=== PATIENT | female | born 1975 | race Caucasian/White ===

== ENCOUNTER 2017-12-21 18:55 | Emergency (ER) | payer OTHER ==
--- NOTE | 2017-12-21 19:36 | RADIOLOGY REPORT (SQ) ---
EXAM DESCRIPTION: KNEE RIGHT 2 VIEWS COMPLETED DATE/TIME: 12/21/2017 7:25 pm REASON FOR STUDY: deformity COMPARISON: None. NUMBER OF VIEWS: Two views. TECHNIQUE: AP and lateral radiographic images acquired of the right knee. LIMITATIONS: None. FINDINGS: MINERALIZATION: Normal. BONES: Patella Francisca. No acute fracture or dislocation. No worrisome bone lesions. JOINT: No effusion. SOFT TISSUES: Focal soft tissue swelling overlies the patellar tendon. OTHER: No other significant finding. IMPRESSION: Patella Francisca in the setting of anterior soft tissue swelling is concerning for acute inj ury of the patellar tendon. TECHNICAL DOCUMENTATION: JOB ID: [id number]- All Rights Reserved Reading location - IP/workstation name: [email or web address]
[2017-12-21] MEDS ORDERED: FENTANYL CITRATE INJ/PF 100 MCG/2 ML AMPUL IV ONE ×3 (19:49→21:50)
--- NOTE | 2017-12-21 19:49 | ER Document Report ---
ED Extremity Problem, Lower - General Chief Complaint: Knee Injury Stated Complaint: KNEE INJURY Time Seen by Provider: 12/21/17 19:34 Notes: 42-year-old female patient to the emergency department chief complaint of right knee pain. Patient was at a roller rink and fell down. States that she has had multiple dislocations of her patella but feels like her whole knee got dislocated this time. Has pain all over the knee. Unable to bear weight. Having major spasms in her knee and muscles at this time. Has had surgery on both knees in the past. Denies any other injuries TRAVEL OUTSIDE OF THE [place] IN LAST 30 DAYS: No - HPI Patient complains to provider of: Pain, Swelling Location: Knee Occurred: Just prior to arrival Onset/Duration: Sudden Quality of pain: Throbbing Severity: Severe Pain Level: 5 - Related Data Allergies/Adverse Reactions: No Known Allergies Allergy (Unverified 12/21/17 18:57) Past Medical History - General Information source: Patient - Social History Smoking Status: Never Smoker Cigarette use (# per day): No Frequency of alcohol use: Social Drug Abuse: None Lives with: Spouse/Significant other Family History: Reviewed & Not Pertinent Review of Systems - Review of Systems Notes: Constitutional: denies: Chills, Diaphoresis, Fever, Malaise, Weakness EENT: denies: Eye discharge, Blurred vision, Tearing, Double vision, Nose congestion, Nose discharge, Throat swelling, Mouth pain Cardiovascular: denies: Palpitations, Heart racing, Orthopnea, Dyspnea, Chest pain Respiratory: denies: Cough, Hurts to breathe, Wheezing, Shortness of breath Gastrointestinal: denies: Abdominal pain, Diarrhea, Nausea, Vomiting, Black stools, bright red blood in stool Genitourinary: denies: Burning, Dysuria, Discharge, Frequency, Flank pain, Hematuria Musculoskeletal: Your pain in the right knee, possible right knee with Dislocation, questionable knee dislocation Hematologic/Lymphatic: denies: Anemia, Easy bleeding, Easy bruising, Blood clots Neurological/Psychological: denies: Confusion, Dementia, Depression, Loss of consciousness Skin: No lesions, no masses, no skin breakdown, no abscesses Physical Exam - Vital signs Vitals: Pulse Resp BP Pulse Ox 65 17 99/45 L 100 12/21/17 21:13 12/21/17 21:13 12/21/17 21:13 12/21/17 21:13 Interpretation: Normal - General General appearance: Appears well, Alert - HEENT Head: Normocephalic, Atraumatic Eyes: Normal Pupils: PERRL - Respiratory Respiratory status: No respiratory distress Chest status: Nontender Breath sounds: Normal Chest palpation: Normal - Cardiovascular Rhythm: Regular Heart sounds: Normal auscultation Murmur: No - Abdominal Inspection: Normal Distension: No distension Bowel sounds: Normal Tenderness: Nontender Organomegaly: No organomegaly - Extremities General upper extremity: Normal inspection, Nontender, Normal color, Normal ROM , Normal temperature General lower extremity: Tender, Edema, Normal color, Normal temperature, Other - She has significant tenderness to palpation of the medial and lateral Kligman' s of the right knee. Pulses are present distally. The kneecap appears to be in normal anatomical position with tenderness to palpation of the patellar tendon.. No: Normal ROM, Normal weight bearing - Neurological Neuro grossly intact: Yes Cognition: Normal Orientation: AAOx4 [place] Coma Scale Eye Opening: Spontaneous [place] Coma Scale Verbal: Oriented [place] Coma Scale Motor: Obeys Commands Alfie Coma Scale Total: 15 Speech: Normal Motor strength normal: LUE, RUE, LLE, RLE Sensory: Normal, 2-pt discrimination. No: Altered light touch - Skin Skin Temperature: Warm Skin Moisture: Dry Skin Color: Normal Course - Re-evaluation Re-evalutation: 12/21/17 20:04 X-ray more likely reveals some disruption of the patella tendon however patient is describing what could possibly have been a actual complete knee dislocation. Has exquisite tenderness to palpation. We will go ahead and proceed with a CT angios to make sure that blood vessels are intact. Patient is comfortable with this plan. Pain medication ordered. 12/21/17 21:31 Knee X-Ray 12/21/17 00:00 IMPRESSION: Patella Francisca in the setting of anterior soft tissue swelling is concerning for acute injury of the patellar tendon. Lower Extremity CTA 12/21/17 19:49 IMPRESSION: No evidence for popliteal artery aneurysm or extravasation of contrast. Moderate hematoma involving the medial knee soft tissues with lateral subluxation of the patella which may be due to rupture of the medial patellar ligament. SHe will definitely need to be seen by orthopedic surgery. Will place in a knee immobilizer and crutches. CTA of the lower extremity performed to rule out any Of popliteal artery aneurysm. There is no evidence of such however she does have some lateral subluxation of the patella which may be due to rupture of the medial patellar ligament. This will need to be addressed by orthopedic surgery. Patient is comfortable with this plan. No other injuries. Will DC at this time in stable condition. - Vital Signs Vital signs: Temp Pulse Resp BP Pulse Ox 65 17 99/45 L 100 12/21/17 21:13 12/21/17 21:13 12/21/17 21:13 12/21/17 21:13 Discharge - Discharge Clinical Impression: Dislocation, patella closed Qualifiers: Encounter type: initial encounter Laterality: right Qualified Code(s): S83.004A - Unspecified dislocation of right patella, initial encounter Condition: Good Disposition: HOME, SELF-CARE Instructions: Knee Immobilizing Splint ([facility]), Suspected Internal Knee Injury ( [facility]), Use of Crutches ([facility]), Ice & Elevation ([facility]), Oral Narcotic Medication ( [facility]) Additional Instructions: Please follow-up with orthopedic surgery. Wear your brace and use crutches. Weightbearing as tolerated. Prescriptions: Hydrocodone/Acetaminophen [Lorenzo 5-325 mg Tablet] 1 tab PO BID PRN 4 Days #12 tablet PRN Reason: Ibuprofen [Motrin 600 Mg Tablet] 600 mg PO TID #15 tablet Referrals: CAROLYNN SÁNCHEZ PA [Primary Care Provider] - Follow up as needed ANGELICA KATHLEEN MD [ACTIVE STAFF] - 12/23/17
--- NOTE | 2017-12-21 21:19 | RADIOLOGY REPORT (SQ) ---
CT angiogram of the left lower extremity before and after intravenous contrast with three-dimensional reconstructions on a separate workstation for review HISTORY: Evaluate for popliteal artery aneurysm. Patient was rollerskating and hit from behind, fell on knee. History of dislocation. This exam was performed according to our departmental dose-optimization program which includes automated exposure control, adjustment of the mA and/or kVp according to patient size and/or use of iterative reconstruction technique where applicable. FINDINGS: The popliteal artery is normal in size and appearance with no aneurysm. Trifurcation is patent. There is a moderate soft tissue stranding and hematoma medially in the left knee. The patella is laterally displaced. This may be due to rupture of the medial patellar ligament. There is a mild suprapatellar joint effusion. There is no extravasation of contrast in the hematoma noted. No evidence for acute fracture is noted. IMPRESSION: No evidence for popliteal artery aneurysm or extravasation of contrast. Moderate hematoma involving the medial knee soft tissues with lateral subluxation of the patella which may be due to rupture of the medial patellar ligament.
[2017-12-21] MEDS ORDERED: HYDROCODONE/ACETAMINOPHEN 5-325 MG (6 TAB/ER DISP) PO PRN (21:28)
[2017-12-21 22:16] VITALS: BP 105/55
== END 2017-12-21 22:16 | disposition home or self-care (01) ==
LOC: ER 18:55
DX: S83.004A Unspecified dislocation of right patella, initial encounter (principal); V00.121A Fall from non-in-line roller-skates, initial encounter; Y93.51 Activity, roller skating (inline) and skateboarding; Y92.838 Other recreation area as the place of occurrence of the external cause
CPT/HCPCS: 96376; 99284; 96374; 73560; 73706; L1830; J3010

== ENCOUNTER 2018-02-18 07:15 | Emergency (ER) | payer OTHER ==
[2018-02-18] MEDS ORDERED: ONDANSETRON HCL INJ/PF 4 MG/2 ML SDV IV ONE (08:32)
[2018-02-18] MEDS ORDERED: NORMAL SALINE 1000 ML 1,000 ML IV ONE (08:32)
[2018-02-18] MEDS ORDERED: MECLIZINE HCL 25 MG TABLET PO ONE (08:32)
[2018-02-18 09:03] LABS: ABSOLUTE LYMPHOCYTES (AUTO) 0.7 10^3/uL (0.5-4.7); ABSOLUTE MONOCYTES (AUTO) 0.3 10^3/uL (0.1-1.4); ABSOLUTE NEUT (AUTO) 9.8 10^3/uL (1.7-8.2); BASOPHILS % (AUTO) 0.2 % (0-2); EOSINOPHILS % (AUTO) 0.2 % (0-6); HEMATOCRIT 41.7 % (36.0-47.0); HEMOGLOBIN 14.3 g/dL (12.0-15.5); LYMPHOCYTES % (AUTO) 6.3 % (13-45); MEAN CORPUSCULAR HEMOGLOBIN 31.6 pg (27.0-33.4); MEAN CORPUSCULAR HGB CONC 34.2 g/dL (32.0-36.0); MEAN CORPUSCULAR VOLUME 92 fl (80-97); MONOCYTES % (AUTO) 2.8 % (3-13); PLATELET COUNT 254 10^3/uL (150-450); RED BLOOD COUNT 4.51 10^6/uL (3.72-5.28); RED CELL DISTRIBUTION WIDTH 12.8 % (11.5-14.0); SEGMENTED NEUTROPHILS % (AUTO) 90.5 % (42-78); TOTAL CELLS COUNTED % (AUTO) 100 %; WHITE BLOOD COUNT 10.8 10^3/uL (4.0-10.5)
[2018-02-18 09:22] LABS: ALANINE AMINOTRANSFERASE 14 U/L (9-52); ALBUMIN 4.2 g/dL (3.5-5.0); ALKALINE PHOSPHATASE 55 U/L (38-126); ANION GAP 7 (5-19); ASPARTATE AMINO TRANSFERASE 14 U/L (14-36); BILIRUBIN,DIRECT 0.2 mg/dL (0.0-0.4); BILIRUBIN,TOTAL 0.8 mg/dL (0.2-1.3); BLOOD UREA NITROGEN 11 mg/dL (7-20); CALCIUM 9.4 mg/dL (8.4-10.2); CARBON DIOXIDE 26 mmol/L (22-30); CHLORIDE 109 mmol/L (98-107); GLUCOSE 94 mg/dL (75-110); POTASSIUM 4.2 mmol/L (3.6-5.0); SODIUM 141.7 mmol/L (137-145); TOTAL PROTEIN 6.8 g/dL (6.3-8.2)
--- NOTE | 2018-02-18 11:08 | ER Document Report ---
ED General - General Chief Complaint: Headache Stated Complaint: DIZZINESS,VOMITING,NECK PAIN Time Seen by Provider: 02/18/18 08:12 Mode of Arrival: Ambulatory Information source: Patient Notes: Patient is an otherwise healthy 43-year-old female who presents with chief complaint of dizziness and what feels like the room spinning every time she moves. She also reports that she started vomiting this morning. She does report a mild headache that is been ongoing for approximately 2 days, describes this as a similar presentation to her usual migraines. Patient reports that she has had a history of vertigo in the past however it has been many years. Patient denies any recent illnesses and denies any fever. TRAVEL OUTSIDE OF THE [place] IN LAST 30 DAYS: No - Related Data Allergies/Adverse Reactions: No Known Allergies Allergy (Verified 02/18/18 07:19) Past Medical History - General Information source: Patient - Social History Smoking Status: Never Smoker Chew tobacco use (# tins/day): No Frequency of alcohol use: Social Drug Abuse: None Family History: Reviewed & Not Pertinent Patient has suicidal ideation: No Patient has homicidal ideation: No Neurological Medical History: Reports: Hx Migraine Renal/ Medical History: Denies: Hx Peritoneal Dialysis Musculoskeletal Medical History: Reports Hx Arthritis - right knee Past Surgical History: Reports: Hx Section - x 3, Hx Orthopedic Surgery - right knee.left knee Review of Systems - Review of Systems Constitutional: Other - Dizziness and room spinning Gastrointestinal: Nausea, Vomiting -: Yes All other systems reviewed and negative Physical Exam - Vital signs Vitals: Temp Pulse Resp BP Pulse Ox 97.6 F 82 18 109/63 98 02/18/18 07:23 02/18/18 07:23 02/18/18 07:23 02/18/18 07:23 02/18/18 07:23 - Notes Notes: PHYSICAL EXAMINATION: GENERAL: Well-appearing, well-nourished and in no acute distress. HEAD: Atraumatic, normocephalic. EYES: Pupils equal round and reactive to light, extraocular movements intact, conjunctiva are normal. ENT: Nares patent, oropharynx clear without exudates. Moist mucous membranes. NECK: Normal range of motion, supple without lymphadenopathy LUNGS: Breath sounds clear to auscultation bilaterally and equal. No wheezes rales or rhonchi. HEART: Regular rate and rhythm without murmurs ABDOMEN: Soft, nontender, nondistended abdomen. No guarding, no rebound. No masses appreciated. Female : No CVA tenderness Musculoskeletal: Normal range of motion, no pitting or edema. No cyanosis. NEUROLOGICAL: Cranial nerves grossly intact. Normal speech, normal gait. Normal sensory, motor exams PSYCH: Normal mood, normal affect. SKIN: Warm, Dry, normal turgor, no rashes or lesions noted. Course - Re-evaluation Re-evalutation: CBC, CMP and urinalysis are unremarkable. Patient reports significant improvement of her symptoms after administration of Zofran and meclizine. Patient was also given 1 L of normal saline. Patient's vital signs have been stable throughout her visit. Patient will be discharged home with prescriptions for meclizine and Zofran. Plan to follow-up with PCP or ENT if symptoms not improving. Patient and family members at bedside understand plan of care and are agreeable to same. - Vital Signs Vital signs: Temp Pulse Resp BP Pulse Ox 98.7 F 72 16 97/47 L 98 02/18/18 11:41 02/18/18 11:41 02/18/18 11:41 02/18/18 11:41 02/18/18 11:41 - Laboratory Result Diagrams: 02/18/18 08:50 02/18/18 08:50 Laboratory results interpreted by me: 02/18/18 02/18/18 02/18/18 08:50 08:50 09:47 WBC 10.8 H Seg Neutrophils % 90.5 H Lymphocytes % 6.3 L Monocytes % 2.8 L Absolute Neutrophils 9.8 H Chloride 109 H Urine Ketones 20 H Urine Blood SMALL H Discharge - Discharge Clinical Impression: Vertigo, Nausea Vomiting Qualifiers: Vomiting type: unspecified Vomiting Intractability: unspecified Nausea presence : unspecified Qualified Code(s): R11.10 - Vomiting, unspecified Condition: Stable Disposition: HOME, SELF-CARE Additional Instructions: Vertigo You have experienced an episode of vertigo -- a whirling dizziness which may be accompanied by nausea and vomiting or staggering. Vertigo is often caused by an irritation of the inner ear, in which case it is called labyrinthitis. It can also be a symptom of a degenerating inner ear, nerve damage, or brain injury. Your physician has evaluated you to determine whether any further testing is necessary. Vertigo is often treated with dramamine or meclizine. These medications are helpful, but stronger medication may be needed if you are vomiting. Rest in bed. You should not drive or operate machinery until completely better. It may take one to three weeks for recovery. If there are new symptoms, such as decreased hearing or vision, severe headache, weakness or faintness, or confusion, call the physician. Meclizine You are to take meclizine (Antivert, Bonine) for control of symptoms. This is a drug of the antihistamine family which is useful for controlling nausea, dizziness, and motion sickness. Meclizine is usually taken three times a day, as needed. It's more effective at preventing symptoms than at relieving severe symptoms once they occur. It can be taken BEFORE activities which are likely to cause dizziness or nausea. Common side effects of this medicine are drowsiness and dry mouth. You should use caution in driving or operating machinery while taking this medication. In particular, you should not drive long distances or drive at night while taking this medicine. Meclizine should not be combined with alcohol , narcotics, or sedative medications without consulting your physician. Please take medications as prescribed. Your blood work today was normal. You may also try the Shireen maneuver as outlined on the handout 1-2 times daily. If your symptoms do not resolve over the next 1-2 weeks, follow-up with ENT. Prescriptions: Meclizine HCl [Antivert 25 mg Tablet] 25 mg PO Q6H #30 tablet Ondansetron HCl [Zofran 4 mg Tablet] 1 - 2 tab PO Q4H PRN #20 tablet PRN Reason: Forms: Return to Work Referrals: CATIE SALCIDO DO [ASSOCIATE] - Follow up as needed
[2018-02-18 11:10] LABS: APPEARANCE,URINE SLIGHTLY-CLOUDY; BILIRUBIN,URINE NEGATIVE (NEGATIVE); COLOR,URINE YELLOW; GLUCOSE, URINE NEGATIVE (NEGATIVE); KETONES,URINE 20 mg/dL (NEGATIVE); LEUKOCYTE ESTERASE,URINE NEGATIVE (NEGATIVE); NITRITE,URINE NEGATIVE (NEGATIVE); PROTEIN,URINE NEGATIVE (NEGATIVE); URINE SPECIFIC GRAVITY 1.014; UROBILINOGEN,URINE NEGATIVE mg/dL (<2.0)
[2018-02-18 11:43] VITALS: BP 97/47
== END 2018-02-18 11:50 | disposition home or self-care (01) ==
LOC: ER 07:15
DX: R42 Dizziness and giddiness (principal); R11.2 Nausea with vomiting, unspecified; R51 Headache; M54.2 Cervicalgia
CPT/HCPCS: 99284; 96361; 96374; 36415; 85025; 80053; 81001; J2405; J7030